=== PATIENT | male | born 1990 | race Caucasian/White ===

== ENCOUNTER 2016-09-08 22:57 | Emergency (ER) | payer MEDICARE, OTHER ==
[~2016-09-08] VITALS: Ht 167.6 cm; Wt 45.4 kg
[2016-09-09] MEDS ORDERED: ACETAMINOPHEN 325 MG TAB PO ONE
[2016-09-09] MEDS ORDERED: CLINDAMYCIN 900 MG in APPROPRIATE DILUENT 1 EA IV ONE ×2
[2016-09-09] MEDS ORDERED: KETOROLAC 30 MG/ML VIAL (J1885) IV ONE
[2016-09-09 00:43] LABS: BASO % 0.3 % (0.0-1.0); EOS # 0.3 K/mm3 (0.0-0.50); EOS % 1.8 % (0.0-3.0); LARGE UNSTAINED CELL # 0.2 K/mm3 (0.0-0.4); LARGE UNSTAINED CELL % 1.2 % (0.0-4.0); LYMPH # 2.7 K/mm3 (1.5-6.5); LYMPH % 13.9 % (24.0-44.0); MEAN CORPUSCULAR VOLUME 93.9 fl (80.0-96.0); MONO % 5.3 % (0.0-5.0); NEUTROPHILS # 13.9 K/mm3 (1.8-7.7); NEUTROPHILS % 77.4 % (36.0-66.0); PLATELET COUNT, AUTOMATED 324 k/mm3 (150-450); RED CELL DISTRIBUTION WIDTH 12.9 % (11.5-14.5)
[2016-09-09] MEDS ORDERED: ISOVUE-370 76% 100ML VIAL (Q9967) As Ordered ONE (00:55)
[2016-09-09 01:11] LABS: ERYTHROCYTE SEDIMENTATION RATE 16 mm/hr (0-15)
[2016-09-09 01:23] LABS: ALBUMIN 4.1 GM/DL (3.2-5.2); ALBUMIN/GLOBULIN RATIO 1.14 (1.00-1.93); ALKALINE PHOSPHATASE 73 U/L (45-117); ALT/SGPT 13 U/L (12-78); ANION GAP 7 MEQ/L (8-16); AST/SGOT 13 U/L (15-37); BILIRUBIN,TOTAL 0.4 MG/DL (0.2-1.0); BLOOD UREA NITROGEN 16 MG/DL (7-18); CALCIUM LEVEL 9.5 MG/DL (8.5-10.1); CARBON DIOXIDE LEVEL 29 MEQ/L (21-32); CHLORIDE LEVEL 104 MEQ/L (98-107); CREATININE FOR GFR 0.91 MG/DL (0.70-1.30); GLOMERULAR FILTRATION RATE > 60.0 (>60); GLUCOSE, FASTING 94 MG/DL (70-105); SODIUM LEVEL 140 MEQ/L (136-145); TOTAL PROTEIN 7.7 GM/DL (6.4-8.2)
--- NOTE | 2016-09-09 02:00 | REPUSA ---
CT of the facial bones with contrast Clinical history: left facial swelling. Technique: Multiple axial CT images were obtained through the facial bones and paranasal sinuses util izing 3 mm axial slices after administration of nonionic intravenous contrast. Coronal and sagittal r econstructions were also obtained. Findings: The visualized paranasal sinuses are clear. Virginie bullosa is appreciated in the middle rig ht ethmoid turbinate. The osteomeatal complexes are patent bilaterally. The nasal septum is slightly deviated leftward. The visualized mastoid air cells are clear. The osseous structures do not demonstr ate any acute abnormalities. There is severe superficial soft tissue swelling in the left maxillary a nd mandibular regions. No focal mass or fluid collection is identified however. Impression: 1. Extensive superficial soft tissue swelling in the left maxillary and mandibular regions, consisten t with cellulitis. No mass or abscess is identified. 2. Sinuses are clear. 3. The orbits are intact. 4. There are no acute osseous abnormalities.
[2016-09-09] MEDS ORDERED: IBUP80TA PO (02:14)
[2016-09-09] MEDS ORDERED: CLIN1CAP5 PO (02:14)
[2016-09-09 02:36] VITALS: BP 109/58
== END 2016-09-09 02:36 | disposition home or self-care (01) ==
LOC: M ED 09-09 00:03
DX: K04.7 Periapical abscess without sinus (principal); K02.9 Dental caries, unspecified; S02.5XXA Fracture of tooth (traumatic), initial encounter for closed fracture; L03.211 Cellulitis of face; X58.XXXA Exposure to other specified factors, initial encounter; Y92.89 Other specified places as the place of occurrence of the external cause; Y93.89 Activity, other specified; Y99.9 Unspecified external cause status
CPT/HCPCS: 70487; 80053; 83605; 85025; 85652; 86140; 87040; 87070; 87077; 87186; 87205; 96365; 96375; 99281; 99283; J1885; Q9967

== ENCOUNTER 2016-09-09 15:43 | Emergency (ER) | payer MEDICARE ==
[~2016-09-09] VITALS: Ht 167.6 cm; Wt 45.4 kg
[~2016-09-09 15:43] MED LIST: CLIN1CAP5 PO; IBUP80TA PO
[2016-09-09 15:44] VITALS: BP 111/58
[2016-09-09] MEDS ORDERED: CLINDAMYCIN 150 MG CAP PO ONE (17:45)
== END 2016-09-09 17:43 | disposition home or self-care (01) ==
LOC: M ED 16:28
DX: L03.211 Cellulitis of face (principal)

== ENCOUNTER 2017-09-28 04:24 | Emergency (ER) | payer MEDICAID, MEDICARE | END 2017-09-28 05:39 | disposition home or self-care (01) | LOC: M ED 04:24 | DX: F41.8 Other specified anxiety disorders (principal); Z60.9 Problem related to social environment, unspecified; F31.9 Bipolar disorder, unspecified; F17.210 Nicotine dependence, cigarettes, uncomplicated | CPT/HCPCS: 99284 ==

== ENCOUNTER 2017-09-28 20:24 | Emergency (ER) | payer MEDICAID, MEDICARE ==
[2017-09-28] MEDS: LORazepam 2 MG TAB PO ×2 (23:36)
== END 2017-09-28 23:48 | disposition home or self-care (01) ==
LOC: M ED 20:24
DX: Z76.0 Encounter for issue of repeat prescription (principal); F41.9 Anxiety disorder, unspecified; F17.200 Nicotine dependence, unspecified, uncomplicated; Z79.899 Other long term (current) drug therapy; Z88.8 Allergy status to other drugs, medicaments and biological substances
CPT/HCPCS: 99283

== ENCOUNTER 2018-07-20 11:12 | Emergency (ER) | payer MEDICAID, MEDICARE, OTHER ==
[~2018-07-20] VITALS: Ht 167.6 cm; Wt 61.2 kg
[~2018-07-20 11:12] MED LIST changes: +AMBI10TA PO; +CLIN150C14 PO; -CLIN1CAP5 PO; +PROAAER10 INH
[2018-07-20] MEDS ORDERED: NS 1,000 ML IV ONE (11:45)
[2018-07-20] MEDS ORDERED: ONDANSETRON 4MG/2ML VIAL (J2405) IV ONE (11:45)
[2018-07-20 11:59] LABS: BASO % 0.2 % (0.0-1.0); EOS # 0.2 10^3/uL (0.0-0.50); EOS % 1.4 % (0.0-3.0); HEMOGLOBIN 14.8 g/dl (13.5-17.5); LYMPH # 1.5 10^3/uL (1.5-4.5); LYMPH % 9.3 % (24.0-44.0); MEAN CORPUSCULAR HEMOGLOBIN 32.2 pg (27.0-33.0); MEAN CORPUSCULAR HGB CONC 33.6 g/dl (32.0-36.5); MEAN CORPUSCULAR VOLUME 95.7 fl (80.0-96.0); MONO # 0.5 10^3/uL (0.0-0.8); NEUTROPHILS # 13.8 10^3/uL (1.8-7.7); NEUTROPHILS % 85.7 % (36.0-66.0); PLATELET COUNT, AUTOMATED 346 10^3/uL (150-450); WHITE BLOOD COUNT 16.2 10^3/uL (4.0-10.0)
[2018-07-20 12:32] LABS: ALBUMIN 4.1 GM/DL (3.2-5.2); ALT/SGPT 20 U/L (12-78); BILIRUBIN,DIRECT < 0.1 MG/DL (0.0-0.2); BILIRUBIN,TOTAL 0.2 MG/DL (0.2-1.0); BLOOD UREA NITROGEN 17 MG/DL (7-18); CALCIUM LEVEL 9.4 MG/DL (8.5-10.1); CARBON DIOXIDE LEVEL 30 MEQ/L (21-32); CHLORIDE LEVEL 106 MEQ/L (98-107); CREATININE FOR GFR 0.85 MG/DL (0.70-1.30); GLOMERULAR FILTRATION RATE > 60.0 (>60); GLUCOSE, FASTING 124 MG/DL (70-100); LIPASE 79 U/L (73-393); POTASSIUM SERUM 4.2 MEQ/L (3.5-5.1); SODIUM LEVEL 142 MEQ/L (136-145); TOTAL PROTEIN 7.5 GM/DL (6.4-8.2)
[2018-07-20] MEDS ORDERED: ISOVUE-370 76% 100ML VIAL (Q9967) As Ordered ONE (13:06)
--- NOTE | 2018-07-20 14:01 | REP ---
CT ABDOMEN AND PELVIS WITH IV CONTRAST: TECHNIQUE: Axial contrast enhanced images from the lung bases to the pubic symphysis using 100 mL Isovue 370 intravenous contrast material with multiplanar reformations. Visualized lung bases are clear. Liver, spleen, adrenals, pancreas, and kidneys appear normal. There is no hydronephrosis. There is no abdominal aortic aneurysm. There is no adenopathy. There is no free air or free fluid. No bowel wall thickening is seen. There is no evidence of appendicitis. No pelvic mass is seen. Urinary bladder appears unremarkable. IMPRESSION: No evidence of acute appendicitis. No free air or free fluid. No acute abnormalities detected. Electronically Signed by José Miguel Atkinson MD 07/20/2018 05:23 P
[2018-07-20] MEDS ORDERED: ZOFR4TAB16 PO (14:55)
[2018-07-20 15:09] VITALS: BP 109/69
== END 2018-07-20 15:11 | disposition home or self-care (01) ==
LOC: M ED 11:12
DX: A08.4 Viral intestinal infection, unspecified (principal)
CPT/HCPCS: 74177; 80048; 80076; 83605; 83690; 85025; 96361; 96374; 99284; J2405; Q9967

== ENCOUNTER 2018-10-02 06:20 | Emergency (ER) | payer MEDICARE ==
[~2018-10-02] VITALS: Ht 167.6 cm; Wt 68.2 kg
[~2018-10-02 06:20] MED LIST changes: +ZOFR4TAB16 PO
[2018-10-02] MEDS ORDERED: ONDANSETRON 4 MG ORAL DISINTEGRATING TAB (Q0162 PER 1MG) PO ONE (06:45)
[2018-10-02 08:41] VITALS: BP 118/71
== END 2018-10-02 08:52 | disposition home or self-care (01) ==
LOC: M ED 06:20 → EDBD 06:20 → M ED 08:52
DX: R11.2 Nausea with vomiting, unspecified (principal); F31.9 Bipolar disorder, unspecified; Z72.0 Tobacco use; Z79.899 Other long term (current) drug therapy
CPT/HCPCS: 99284; Q0162

== ENCOUNTER 2019-05-23 17:36 | Inpatient (IN) | payer MEDICARE ==
[~2019-05-23] VITALS: Ht 167.6 cm; Wt 53.9 kg
[2019-05-23] MEDS ORDERED: CHARCOAL ACTIVATED LIQUID 25 GM/120 ML BTL PO ONE (17:45)
[2019-05-23] MEDS ORDERED: NS 1,000 ML IV ONE (17:45)
[2019-05-23 17:59] LABS: BASO # 0.1 10^3/uL (0.0-0.2); BASO % 0.3 % (0.0-1.0); EOS # 0.1 10^3/uL (0.0-0.5); EOS % 0.7 % (0.0-3.0); HEMATOCRIT 43.9 % (42.0-52.0); HEMOGLOBIN 14.9 g/dl (13.5-17.5); LYMPH # 3.2 10^3/uL (1.5-5.0); LYMPH % 21.9 % (24.0-44.0); MEAN CORPUSCULAR HEMOGLOBIN 31.8 pg (27.0-33.0); MEAN CORPUSCULAR HGB CONC 33.9 g/dl (32.0-36.5); MEAN CORPUSCULAR VOLUME 93.6 fl (80.0-96.0); MONO # 1.1 10^3/uL (0.0-0.8); MONO % 7.4 % (0.0-5.0); NEUTROPHILS % 69.5 % (36.0-66.0); PLATELET COUNT, AUTOMATED 362 10^3/uL (150-450); RED BLOOD COUNT 4.69 10^6/uL (4.30-6.10); WHITE BLOOD COUNT 14.4 10^3/uL (4.0-10.0)
[2019-05-23 18:39] LABS: ACETAMINOPHEN LEVEL < 2.0 UG/ML (10.0-30.0); ALBUMIN 4.5 GM/DL (3.2-5.2); ALT/SGPT 20 U/L (12-78); BILIRUBIN,DIRECT 0.1 MG/DL (0.0-0.2); BILIRUBIN,TOTAL 0.4 MG/DL (0.2-1.0); BLOOD UREA NITROGEN 14 MG/DL (7-18); CALCIUM LEVEL 10.2 MG/DL (8.5-10.1); CARBON DIOXIDE LEVEL 27 MEQ/L (21-32); CHLORIDE LEVEL 104 MEQ/L (98-107); CPK CREATINE PHOSPHOKINASE 87 U/L (39-308); CREATININE FOR GFR 1.06 MG/DL (0.70-1.30); GLOMERULAR FILTRATION RATE > 60.0 (>60); GLUCOSE, FASTING 92 MG/DL (70-100); POTASSIUM SERUM 3.7 MEQ/L (3.5-5.1); SALICYLATE LEVEL 31.9 MG/DL (5.0-30.0); SODIUM LEVEL 139 MEQ/L (136-145); THYROID STIMULATING HORMONE 0.911 uIU/ML (0.358-3.740); TOTAL PROTEIN 8.6 GM/DL (6.4-8.2)
[2019-05-23 18:43] LABS: ABG HCO3 20.1 MEQ/L (22.0-26.0); ABG O2 SATURATION 98.7 % (95.0-99.0); ABG PARTIAL PRESSURE CO2 33.8 mmHg (35.0-45.0); ABG PARTIAL PRESSURE O2 140.8 mmHg (75.0-100.0); ABG STANDARD HCO3 21.2 MEQ/L (22.0-26.0); ABG TOTAL CO2 21.1 MEQ/L (22.0-29.0); ABG pH (ARTERIAL) 7.392 UNITS (7.350-7.450)
--- NOTE | 2019-05-23 18:45 | ECGEPIP ---
[facility] - ED Test Date: 2019-05-23 Pat Name: AKUA ZEPEDA Department: Room: - Gender: Male Staffing Analyst: harjinder : 1990 Requested By: Leticia Coombs Order Number: [id number] Reading MD: Neo Sauceda Measurements Intervals [place] Rate: 70 P: 58 WA: 111 QRS: 72 QRSD: 94 T: 74 QT: 375 QTc: 405 Interpretive Statements SINUS RHYTHM WITH SINUS ARRHYTHMIA WITH SHORT WA INTERVAL POSSIBLE LEFT ATRIAL ENLARGEMENT NO PRIORS FOR COMPARISON Electronically Signed on 05-23-2019 18:45:11 EST by Neo Sauceda
[2019-05-23] MEDS ORDERED: ONDANSETRON 4MG/2ML VIAL (J2405) As Ordered ONE (18:46)
[2019-05-23] MEDS ORDERED: ONDANSETRON 4MG/2ML VIAL (J2405) IV ONE ×2 (19:00→22:45)
[2019-05-23 19:25] LABS: AMPHETAMINES LEVEL URINE NEGATIVE (NEGATIVE); BARBITURATES URINE NEGATIVE (NEGATIVE)
[2019-05-23 19:26] LABS: BENZODIAZEPINES URINE NEGATIVE (NEGATIVE); CANNABINOIDS URINE POSITIVE (NEGATIVE); COCAINE METABOLITE URINE NEGATIVE (NEGATIVE); METHADONE URINE NEGATIVE (NEGATIVE); OPIATES URINE NEGATIVE (NEGATIVE); PHENCYCLIDINE URINE NEGATIVE (NEGATIVE)
[2019-05-24] MEDS ORDERED: METOCLOPRAMIDE INJ 10MG/2ML VIAL (J2765) IV ONE (00:30)
[2019-05-24] MEDS ORDERED: NS 1,000 ML IV ONE (02:00)
[2019-05-24] MEDS: NICOTINE 21MG/24HR 1 EA TRANSDERMAL TD SCH (09:00)
[2019-05-24] MEDS ORDERED: MOM 30ML SUSPENSION UDC PO PRN (13:30)
[2019-05-24] MEDS ORDERED: traZODone 50 MG TAB PO PRN (13:30)
[2019-05-24] MEDS ORDERED: MAALOX 30 ML SUSP *UDC PO PRN (13:30)
[2019-05-24] MEDS ORDERED: ACETAMINOPHEN TAB 650MG DOSE (2X325MG) PO PRN (13:30)
[2019-05-24 14:31] VITALS: BP 130/66
[2019-05-25 06:32] VITALS: BP 123/65
[2019-05-25] MEDS: NICOTINE 21MG/24HR 1 EA TRANSDERMAL TD SCH (09:00)
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
[2019-05-25] MEDS ORDERED: diphenhydrAMINE 25 MG CAP PO PRN (11:30)
[2019-05-25 16:34] VITALS: BP 143/89
--- NOTE | 2019-05-25 17:19 | HPEPDOC ---
[facility] Medical History & Physical Date of Admission May 24, 2019 Date of Service: May 25, 2019 History and Physical CHIEF COMPLAINT: "I took a lot of aspirin" HISTORY OF PRESENT ILLNESS: Patient is a 28M with no significant PMH apart from psychiatric diagnosis of depression and substance use disorder per documentation presented to the ER after reporting that he took a large dose of Aspirin. He stated that he took a lot by accident during my interview but had no intention of harming himself. History appear to be different since admission. He states that he has no medical problems and does not take any medications on a daily basis. Denies any physical complaints at this time including chest pain, SOB, abdominal discomfort, bleeding, fever, chills. PAST MEDICAL HISTORY: Refer to [facility] PAST SURGICAL HISTORY: Denies SOCIAL HISTORY: Reported social alcohol and marijuana use FAMILY HISTORY: Reviewed and noncontributory. Patient was adopted. ALLERGIES: Please see below. REVIEW OF SYSTEMS: 10 point review of system negative except as stated in HPI HOME MEDICATIONS: Please see below. PHYSICAL EXAMINATION: General: No acute distress, Alert, slightly irritable Eyes: Normal sclera, EOMI HENT: Atraumatic Cardiovascular: Normal rate, normal rhythm. Pulmonary: Clear to auscultation b/l, no wheezing GI: Soft, nontender, nondistended Skin: Warm and dry Neuro: CN grossly intact. No focal deficits. Strengths equal b/l. MICROBIOLOGY: Please see below. ASSESSMENT AND PLAN: 1. Aspirin overdose - Serum level peaks at 39.1 and is currently trending down, last at 36.3. - Levels >40 is usually associated with toxicity. - Patient denies any physical complaints at this time, no tinnitis reported. - Cr at 1.06. Stable kidney functions. No elevated in anion gap, AG 8. - K and other electrolytes WNL. - Can continue to monitor Salicylate level but anticipate that it will continue to trend down. - Patient is asymptomatic and does not appear to have a need for hemodialysis at this time. - Will repeat BMP in AM to monitor for changes. 2. Depression - Eval and treat per Psych. Will continue to follow along. To repeat BMP, salicylate and lactic acid level now. Also repeat another BMP and salicylate in AM. Vital Signs Vital Signs Date Time Temp Pulse Resp B/P (MAP) Pulse Ox O2 Delivery O2 Flow Rate FiO2 05/25/19 16:34 98.8 68 19 143/89 (107) 05/25/19 08:24 Room Air 05/24/19 14:31 98 Home Medications No Active Prescriptions or Reported Meds Allergies Coded Allergies: lamotrigine (Verified Allergy, Unknown, 05/23/19) A-FIB/CHADSVASC A-FIB History Current/History of A-Fib/PAF?: No KATELYN SIMPSON MD May 25, 2019 17:19
[2019-05-25 19:07] LABS: BLOOD UREA NITROGEN 17 MG/DL (7-18); CALCIUM LEVEL 9.8 MG/DL (8.5-10.1); CARBON DIOXIDE LEVEL 32 MEQ/L (21-32); CHLORIDE LEVEL 102 MEQ/L (98-107); CREATININE FOR GFR 0.94 MG/DL (0.70-1.30); GLOMERULAR FILTRATION RATE > 60.0 (>60); GLUCOSE, FASTING 115 MG/DL (70-100); POTASSIUM SERUM 4.5 MEQ/L (3.5-5.1); SODIUM LEVEL 141 MEQ/L (136-145)
--- NOTE | 2019-05-25 23:22 | ECGEPIP ---
Test Date: 2019-05-25 Pat Name: AKUA ZEPEDA Department: Room: [place] [address] Gender: Male Radio Sportscaster: : 1990 Requested By: SPENCER COTREZ Order Number: [id number] Reading MD: Franky Donnelly Measurements Intervals [place] Rate: 49 P: 40 NE: 104 QRS: 78 QRSD: 86 T: 68 QT: 387 QTc: 350 Interpretive Statements SINUS BRADYCARDIA WITH SHORT NE INTERVAL Electronically Signed on 05-25-2019 23:22:03 EST by Franky Donnelly
[2019-05-26 06:45] VITALS: BP 113/69
--- NOTE | 2019-05-26 08:13 | REP ---
Acute abdominal series: Three views. History: Upper abdominal pain. Comparison chest x-ray is from October 14, 2006. Findings: Upright chest radiograph is normal. There is no evidence of infiltrate or free subdiaphragmatic air. Heart is not enlarged. Supine and erect views of the abdomen demonstrate an unremarkable bowel gas pattern with air and stool in a nondistended colon. No small bowel dilation is seen. Psoas margins and flank stripes are intact. No mass, organomegaly, or pathologic calcification is seen. Impression: Negative abdominal series. Electronically Signed by Jonny Nguyen MD 05/26/2019 08:05 A
[2019-05-26] MEDS ORDERED: DIPH25CA32 PO (08:49)
--- NOTE | 2019-05-26 08:49 | MHDSPDOC ---
[facility] Discharge Summary Discharge Summary DATE OF ADMISSION: May 24, 2019 at 1:20 pm DATE OF DISCHARGE: May 26, 2019 DISCHARGE DIAGNOSES: depression unspecified cannabis use d/o mild intellectual disability REASON FOR ADMISSION: Patient is a 28 -year-old , male, with a psych history per pt of depression and substance use d/o who self presented to the ED after he stated he took an overdose of aspirin, unknown amount b/c he just took a handful because he was depressed after having been kicked out of his home per the ED. Per ED pt was a poor historian when seen, guarded, poor eye contact, with delayed responses when seen. Pt admitted to take aspirin overdose stating "I've lost everything" admitting to relationship problems with his girlfriend who "kicked me out" now staying where he can per ED. Pt also stated in ED that his girlfriend has an order of protection against him but would not state who. Pt also endorsed financial stressor and limited supports in his life. He endorsed depression , anxiety, helplessness, hopelessness as to reasons why he took the overdose of aspirin in the ED. Aspirin level elevated and trending down currently. Pt seen and states he took too many aspirin b/c he had a migraine and was depressed after having been kicked out of his home b/c "the love of my life put a restraining order out on me b/c her mother doesn't want me around her daughter and thinks I'm threat." States he feels wonderful today after talking to his wrapper counter regarding having family court tomorrow regarding the order of protecti on. States he regrets his OD. States he plans to stay with his bother who is supportive of him. Denies SI/HI, hallucinations, delusions. Feels safe here. Asking for ativan and due to substance abuse his history will provide benadryl prn anxiety. CONSULTANTS INVOLVED: none TREATMENT AND PROGRESS ON THE UNIT : Pt was admitted to [facility], seen for psychiatric assessment and started on benadryl 25mg q4hr prn anxiety and insomnia. Pt found benadryl beneficial and tolerated it well well. He attended groups daily during his stay. His symptoms improved with treatment. On day of discharge he denied depression, anxiety, insomnia, SI/HI, hallucinations, delusions. He was discharged home to his brother's house with follow-up at [facility]. He felt safe for discharge. DISCHARGE ASSESSMENT: Pt seen and states that his mood is "good" and that he's looking forward to being discharged today to go to family court regard OOP against him that was put in place by his girlfriend and then to his brother's house to stay. States he slept well last night. Feels he is tolerating his benadryl and it's beneficial. He is attending groups and finding them helpful. He denies depression, anxiety, insomnia, SI/HI, hallucinations, delusions. Pt feels safe to be discharged today. MENTAL STATUS EXAMINATION ON DISCHARGE: General Appearance: unkempt, appears stated age, hospital scrubs/clothing, other (poor dentition) Build: average Demeanor: average Eye Contact: average Activity: average Behavior: cooperative Speech: clear, spontaneous, reg/rate,rhythm,volume Mood: euthymic Mood "good" Affect: full, appropriate, congruent Thought Process: logical/linear, concrete Thought Content (Delusions): none reported, denies SI, HI, AVH Thought Content (Other): none reported Thought Content (Aggressive): none reported Perception (Hallucinations): none reported Perception (Other): none reported Cognition (Impairment of): none reported Cognition(Intelligence Est.): borderline Oriented: Awake, Alert, Oriented times three Insight: fair to good Judgment: Fair to good Psychosis: Denies MEDICATIONS ON DISCHARGE: benadryl 25mg tid prn anxiety PLAN/FOLLOWUP ARRANGEMENTS: D/c home with follow-up at [facility]. The amount of time spent in the coordination of care for this patient was approximately 30 minutes. Vital Signs/I&Os Vital Signs Date Time Temp Pulse Resp B/P (MAP) Pulse Ox O2 Delivery O2 Flow Rate FiO2 05/26/19 06:45 98.6 113 69 113/69 (84) 05/25/19 08:24 Room Air 05/24/19 14:31 98 Laboratory Data Labs 24H Laboratory Tests 2 05/25/19 18:20: Anion Gap 7L, Glomerular Filtration Rate > 60.0, Lactic Acid Level 1.8, Calcium Level 9.8, Salicylates Level 7.0 CBC/BMP Laboratory Tests 05/25/19 18:20 Medications No Active Prescriptions or Reported Meds Allergies Coded Allergies: lamotrigine (Verified Allergy, Unknown, 05/23/19) RON FINK DO May 26, 2019 8:49 am
[2019-05-26] MEDS: NICOTINE 21MG/24HR 1 EA TRANSDERMAL TD SCH (09:00)
== END 2019-05-26 10:10 | disposition home or self-care (01) | DRG 881 ==
LOC: M ED 17:36 → M ED INP 05-24 13:20 → M PSY 05-24 14:34
PROVIDERS: ADMIT Psychiatry & Neurology Psychiatry; ATTEND Psychiatry & Neurology Psychiatry
DX: F32.9 Major depressive disorder, single episode, unspecified (principal); F12.20 Cannabis dependence, uncomplicated; F70 Mild intellectual disabilities; F17.210 Nicotine dependence, cigarettes, uncomplicated; Z62.810 Personal history of physical and sexual abuse in childhood; Z62.811 Personal history of psychological abuse in childhood; Z63.8 Other specified problems related to primary support group; Z63.0 Problems in relationship with spouse or partner; Z59.0 Homelessness; T39.012A Poisoning by aspirin, intentional self-harm, initial encounter; Z88.8 Allergy status to other drugs, medicaments and biological substances